=== PATIENT | male | born 1985 | race Caucasian/White ===

== ENCOUNTER 2017-11-16 08:33 | Outpatient (CLI) | payer OTHER ==
--- NOTE | 2017-11-16 13:05 | MRI ---
MRI BRAIN WITHOUT CONTRAST: Date: 11/16/17 HISTORY: Head injury, insomnia. FINDINGS: No restricted diffusion is seen. No evidence of infarct, hemorrhage, midline shift, or abnormal extra -axial fluid collections are identified. The ventricular size is normal and the basilar cisterns are patent. No signal abnormalities are seen on the highly sensitive FLAIR images. No blood product are n oted on the gradient echo sequences. There is mucosal disease in the paranasal sinuses. A mucus reten tion cyst versus polyp is seen in the floor of the left maxillary sinus. IMPRESSION: 1. No significant intracranial abnormalities are seen. 2. Mucosal disease in the paranasal sinuses. POS: [facility]
== END 2017-11-16 08:34 | disposition home or self-care (01) ==
LOC: MRI 08:33
PROVIDERS: ATTEND Student in an Organized Health Care Education/Training Program
DX: S06.9X0A Unspecified intracranial injury without loss of consciousness, initial encounter (principal); G47.00 Insomnia, unspecified; J32.9 Chronic sinusitis, unspecified
CPT/HCPCS: 70551; 95816